=== PATIENT | female | born 1995 | race Caucasian/White ===

== ENCOUNTER 2016-12-17 11:56 | Emergency (ER) | payer OTHER ==
[~2016-12-17] VITALS: Ht 157.5 cm; Wt 59.8 kg
[2016-12-17 12:44] VITALS: BP 128/72
== END 2016-12-17 12:45 | disposition home or self-care (01) ==
LOC: EME 11:56
DX: T21.11XA Burn of first degree of chest wall, initial encounter (principal); T20.17XA Burn of first degree of neck, initial encounter; T22.111A Burn of first degree of right forearm, initial encounter; T22.112A Burn of first degree of left forearm, initial encounter; T31.0 Burns involving less than 10% of body surface; X12.XXXA Contact with other hot fluids, initial encounter; Y99.0 Civilian activity done for income or pay
CPT/HCPCS: 99281; 99283